=== PATIENT | female | born 1975 | race Caucasian/White ===

== ENCOUNTER 2019-10-28 11:41 | Emergency (ER) | payer BC, OTHER ==
[2019-10-28] MEDS ORDERED: ONDANSETRON 4 MG/2 ML VIAL ONE (14:14)
[2019-10-28] MEDS ORDERED: KETOROLAC 30 MG/ML INJ ONE (14:14)
[2019-10-28] MEDS ORDERED: NA CHLORIDE 0.9% 1,000 ML ONE (14:14)
--- NOTE | 2019-10-28 14:21 | RAD REPORT ---
EXAM DESCRIPTION: RAD - Chest Pa And Lat (2 Views) - 10/28/2019 2:14 pm CLINICAL HISTORY: COUGH, chills, body aches COMPARISON: No comparisons TECHNIQUE: Frontal and lateral views of the chest were obtained. FINDINGS: The lungs are clear. Heart size is normal and central vasculature is within normal limit s. No pleural effusion or pneumothorax seen. No acute bony finding noted. No aortic abnormality. IMPRESSION: No acute cardiopulmonary process.
[2019-10-28 14:46] LABS: Absolute Lymphocytes (CBC) 0.5 K/uL (0.7-4.9); Basophils % 0.3 % (0-1.3); Hematocrit 42.3 % (36.0-45.0); Lymphocytes % 7.8 % (15.3-44.8); MPV 8.7 fL (7.6-11.3); RBC Red Blood Cell Count 4.81 M/uL (3.86-4.86)
[2019-10-28 15:00] LABS: Bilirubin Total 0.4 mg/dL (0.2-1.0); Potassium 3.9 mmol/L (3.5-5.1); Protein, Total 7.7 g/dL (6.4-8.2)
--- NOTE | 2019-10-28 15:35 | EDPHYS ---
Physician Documentation [facility] Name: Mai Calix Age: 44 yrs Sex: Female : 1975 Arrival Date: 10/28/2019 Time: 11:47 Bed 26 Private MD: ELVIS Physician Omid Jones HPI: 10/28 13:02 This 44 yrs old Female presents to ER via Ambulatory with complaints of Flu ja Symptoms, Headache. 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 - Social history:: Smoking status: Patient/guardian denies using tobacco. - Ebola Screening: : Patient negative for fever greater than or equal to 101.5 degrees Fahrenheit, and additional compatible Ebola Virus Disease symptoms Patient denies exposure to infectious person Patient denies travel to an Ebola-affected area in the 21 days before illness onset No symptoms or risks identified at this time. ROS: 13:48 Constitutional: Negative for fever, chills, and weight loss, Eyes: Negative for injury, ja pain, redness, and discharge, ENT: Negative for injury, pain, and discharge, Neck: Negative for injury, pain, and swelling, Cardiovascular: Negative for chest pain, palpitations, and edema, Abdomen/GI: Negative for abdominal pain, nausea, vomiting, diarrhea, and constipation, Back: Negative for injury and pain, : Negative for injury, bleeding, discharge, and swelling, MS/Extremity: Negative for injury and deformity, Skin: Negative for injury, rash, and discoloration, Psych: Negative for depression, anxiety, suicide ideation, homicidal ideation, and hallucinations, Allergy/Immunology: Negative for hives, rash, and allergies, Endocrine: Negative for neck swelling, polydipsia, polyuria, polyphagia, and marked weight changes, Hematologic/Lymphatic: Negative for swollen nodes, abnormal bleeding, and unusual bruising. 13:48 Respiratory: Positive for cough, "sounds productive". 13:48 Neuro: Positive for headache, weakness. Exam: 13:48 Constitutional: This is a well developed, well nourished patient who is awake, alert, ja and in no acute distress. Head/Face: Normocephalic, atraumatic. Eyes: Pupils equal round and reactive to light, extra-ocular motions intact. Lids and lashes normal. Conjunctiva and sclera are non-icteric and not injected. Cornea within normal limits. Periorbital areas with no swelling, redness, or edema. ENT: Nares patent. No nasal discharge, no septal abnormalities noted. Tympanic membranes are normal and external auditory canals are clear. Oropharynx with no redness, swelling, or masses, exudates, or evidence of obstruction, uvula midline. Mucous membranes moist. Neck: Trachea midline, no thyromegaly or masses palpated, and no cervical lymphadenopathy. Supple, full range of motion without nuchal rigidity, or vertebral point tenderness. No Meningismus. Chest/axilla: Normal chest wall appearance and motion. Nontender with no deformity. No lesions are appreciated. Cardiovascular: Regular rate and rhythm with a normal S1 and S2. No gallops, murmurs, or rubs. Normal PMI, no JVD. No pulse deficits. Respiratory: Lungs have equal breath sounds bilaterally, clear to auscultation and percussion. No rales, rhonchi or wheezes noted. No increased work of breathing, no retractions or nasal flaring. Abdomen/GI: Soft, non-tender, with normal bowel sounds. No distension or tympany. No guarding or rebound. No evidence of tenderness throughout. Back: No spinal tenderness. No costovertebral tenderness. Full range of motion. Skin: Warm, dry with normal turgor. Normal color with no rashes, no lesions, and no evidence of cellulitis. MS/ Extremity: Pulses equal, no cyanosis. Neurovascular intact. Full, normal range of motion. Neuro: Awake and alert, GCS 15, oriented to person, place, time, and situation. Cranial nerves II-XII grossly intact. Motor strength 5/5 in all extremities. Sensory grossly intact. Cerebellar exam normal. Normal gait. Psych: Awake, alert, with orientation to person, place and time. Behavior, mood, and affect are within normal limits. 13:50 Neck: External neck: is normal, no acute changes, C-spine: appears grossly normal, no ja acute changes, Thyroid: appears normal, no acute changes, Trachea: is midline with no obvious abnormalities, no acute changes, ROM/movement: is normal, no acute changes. Vital Signs: 12:05 BP 121 / 85; Pulse 87; Resp 18; Temp 97.7; Pulse Ox 100% on R/A; Weight 102.06 kg; sg Height 5 ft. 8 in. (172.72 cm); Pain 9/10; 12:46 BP 127 / 72; Pulse 85; Resp 16; Temp 97.9(O); Pulse Ox 96% ; lt1 12:05 Body Mass Index 34.21 (102.06 kg, 172.72 cm) sg MDM: 12:39 Patient medically screened. [facility] 13:49 Data reviewed: vital signs, nurses notes, lab test result(s), EKG, radiologic studies, [facility] CT scan, plain films. 10/28 13:02 Order name: Flu [facility] 10/28 13:48 Order name: CBC with Diff; Complete Time: 15:24 [facility] 10/28 13:48 Order name: Comprehensive Metabolic Panel; Complete Time: 15:24 [facility] 10/28 13:48 Order name: Urine Culture [facility] 10/28 13:48 Order name: Blood Culture Adult (2) [facility] 10/28 13:48 Order name: Procalcitonin; Complete Time: 15:24 [facility] 10/28 13:48 Order name: Chest Pa And Lat (2 Views) XRAY; Complete Time: 15:24 [facility] 10/28 13:48 Order name: Urine Dipstick-Ancillary (obtain specimen); Complete Time: 14:33 [facility] Administered Medications: 14:32 Drug: NS 0.9% 1000 ml Route: IV; Rate: 1 bolus; Site: right antecubital; iw 14:32 Drug: TORadol 30 mg Route: IVP; Site: right antecubital; iw 14:45 Follow up: Response: No adverse reaction iw 14:33 Drug: Zofran 4 mg Route: IVP; Site: right antecubital; iw 14:50 Follow up: Response: No adverse reaction Disposition: 10/28/19 15:35 Discharged to Home. Impression: Fever, unspecified, Weakness, Acute upper respiratory infection, unspecified. - Condition is Stable. - Discharge Instructions: Weakness, Cool Mist Vaporizer, Upper Respiratory Infection, Adult, [id number], Weakness, [id number], Cough, Adult, Fever, Adult, [id number]. - Prescriptions for Augmentin 875- 125 mg Oral Tablet - take 1 tablet by ORAL route every 12 hours for 7 days; 14 tablet. - Medication Reconciliation Form, Thank You Letter, Antibiotic Education, Prescription Opioid Use, Work release form form. - Follow up: Private Physician; When: 2 - 3 days; Reason: Recheck today's complaints, Continuance of care, Re-evaluation by your physician. - Problem is new. - Symptoms have improved. Signatures: Dispatcher [employer] EDSachin Dockery RN RN Omid Rose MD MD cha Williams, Irene RN RN iw Yohana Caldwell RN RN ss Corrections: (The following items were deleted from the chart) 16:01 15:35 10/28/2019 15:35 Discharged to Home. Impression: Fever, unspecified; Weakness; ss Acute upper respiratory infection, unspecified. Condition is Stable. Forms are Medication Reconciliation Form, Thank You Letter, Antibiotic Education, Prescription Opioid Use. Follow up: Private Physician; When: 2 - 3 days; Reason: Recheck today's complaints, Continuance of care, Re-evaluation by your physician. Problem is new. Symptoms have improved. ja
--- NOTE | 2019-10-28 15:35 | ER ---
Nurse's Notes [facility] Name: Mai Calix Age: 44 yrs Sex: Female : 1975 Arrival Date: 10/28/2019 Time: 11:47 Bed 26 Private MD: Diagnosis: Fever, unspecified;Weakness;Acute upper respiratory infection, unspecified Presentation: 10/28 12:06 Presenting complaint: Patient states: Was seen at Urgent Care 2 days ago and swabbed sg for flu but was tested negative, dx with URI and started on Tamiflu and Azithromycin. Experiencing a headache this morning with bodyaches and cough and having diarrhea, has had improvement with medications. Transition of care: patient was not received from another setting of care. Onset of symptoms was October 28, 2019. Risk Assessment: Do you want to hurt yourself or someone else? Patient reports no desire to harm self or others. Initial Sepsis Screen: Does the patient meet any 2 criteria? Yes Does the patient have a suspected source of infection? No. Patient's initial sepsis screen is negative. Care prior to arrival: None. 12:06 Method Of Arrival: Ambulatory sg 12:06 Acuity: VALENTIN 4 sg 14:06 Acuity: VALENTIN 3 iw Triage Assessment: 16:00 Pain: Also complains of no other associated symptoms. iw 18:50 Headache History: Denies prior headaches. iw 18:50 Pain: Pain. iw 18:50 Pain: Pain began. 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 - Social history:: Smoking status: Patient/guardian denies using tobacco. - Ebola Screening: : Patient negative for fever greater than or equal to 101.5 degrees Fahrenheit, and additional compatible Ebola Virus Disease symptoms Patient denies exposure to infectious person Patient denies travel to an Ebola-affected area in the 21 days before illness onset No symptoms or risks identified at this time. Screenin:23 Abuse screen: Denies threats or abuse. Denies injuries from another. Nutritional iw screening: No deficits noted. Tuberculosis screening: No symptoms or risk factors identified. Fall Risk IV access (20 points). Assessment: 13:00 General: Appears in no apparent distress. Behavior is calm, cooperative. General: iw Reports fever for feeling ill for fatigue for. Pain: Complains of pain in head. Neuro: Level of Consciousness is awake, alert, obeys commands, Oriented to person, place, time, situation, Moves all extremities. Full function. Cardiovascular: Capillary refill < 3 seconds in bilateral fingers Patient's skin is warm and dry. Respiratory: Respiratory effort is even, unlabored, Respiratory pattern is regular, symmetrical, Derm: Skin is intact, is healthy with good turgor. Musculoskeletal: Range of motion: intact in all extremities. 15:23 Reassessment: Patient appears in no apparent distress at this time. Patient and/or iw family updated on plan of care and expected duration. Pain level reassessed. Patient is alert, oriented x 3, equal unlabored respirations, skin warm/dry/pink. Vital Signs: 12:05 BP 121 / 85; Pulse 87; Resp 18; Temp 97.7; Pulse Ox 100% on R/A; Weight 102.06 kg; sg Height 5 ft. 8 in. (172.72 cm); Pain 9/10; 12:46 BP 127 / 72; Pulse 85; Resp 16; Temp 97.9(O); Pulse Ox 96% ; lt1 12:05 Body Mass Index 34.21 (102.06 kg, 172.72 cm) sg ED Course: 11:47 Patient arrived in ED. am2 12:06 Arm band placed on. sg 12:09 Triage completed. sg 12:39 Omid Jones MD is Attending Physician. [facility] 12:54 Lynne Arevalo, RN is Primary Nurse. iw 13:00 Patient has correct armband on for positive identification. iw 13:16 Flu Sent. iw 14:12 Chest Pa And Lat (2 Views) XRAY In Process Unspecified. EDMS 14:15 Initial lab(s) drawn, by me, sent to lab. First set of blood cultures drawn by me. lt1 14:27 Inserted saline lock: 22 gauge in left antecubital area, using aseptic technique. lt1 14:27 Flu Sent. lt1 15:09 Blood Culture Adult (2) Sent. lt1 16:00 No provider procedures requiring assistance completed. Patient did not have IV access iw during this emergency room visit. Administered Medications: 14:32 Drug: NS 0.9% 1000 ml Route: IV; Rate: 1 bolus; Site: right antecubital; iw 14:32 Drug: TORadol 30 mg Route: IVP; Site: right antecubital; iw 14:45 Follow up: Response: No adverse reaction iw 14:33 Drug: Zofran 4 mg Route: IVP; Site: right antecubital; iw 14:50 Follow up: Response: No adverse reaction iw Outcome: 15:35 Discharge ordered by MD. peres 16:00 Discharged to home ambulatory, with family. iw 16:00 Condition: good 16:00 Discharge instructions given to patient, family, Instructed on discharge instructions, follow up and referral plans. medication usage, Demonstrated understanding of instructions, follow-up care, medications, Prescriptions given X 1. 16:01 Patient left the ED. ss Signatures: Dispatcher [employer] EDMS Sachin Villalta RN RN sg Anderson, Corey, MD MD cha Williams, Irene, RN RN iw Smirch, Shelby, RN RN Sophia Whiting Leah 1
[2019-10-28 16:17] VITALS: BP 127/72; TEMP 97.9; O2SAT 96
== END 2019-10-28 16:01 | disposition home or self-care (01) ==
LOC: ER 11:41
DX: R50.9 Fever, unspecified (principal); R53.1 Weakness; J06.9 Acute upper respiratory infection, unspecified; R51 Headache
CPT/HCPCS: 87040 ×2; 87088; 85025; 87086; 36415; 80053; 84145; 87804 ×2; 71046; 96375; 96374; 99284; J7030; J2405